=== PATIENT | female | born 1975 | race Two or more races ===

== ENCOUNTER 2016-10-09 11:02 | Emergency (ER) | payer OTHER ==
[2016-10-09 11:15] VITALS: BP 143/91; PULSE 86; TEMP 98.1; BMI 27.4
--- NOTE | 2016-10-09 12:05 | PDOC ---
History of Present Illness - General Chief Complaint: Vaginal Bleeding Stated Complaint: VAGINAL BLEEDING, 12 WKS Time Seen by Provider: 10/09/16 11:29 History Source: Patient - History of Present Illness Timing/Duration: reports: constant Quality: reports: severe Past History - Past Medical History Allergies/Adverse Reactions: Allergies Allergy/AdvReac Type Severity Reaction Status Date / Time No Known Allergies Allergy Verified 10/09/16 11:12 Home Medications: Ambulatory Orders NK [No Known Home Medication] 10/09/16 Other medical history: denies - Immunization History Immunization Up to Date: Yes - Psycho/Social/Smoking Cessation Hx Suicidal Ideation: No Smoking History: Never smoked Hx Alcohol Use: No Drug/Substance Use Hx: No Review of Systems - Review of Systems Constitutional: No: Fever Respiratory: No: Shortness of Breath Cardiac (ROS): No: Chest Pain ABD/GI: No: Nausea, Vomiting, Abdominal cramping : No: Dysuria *Physical Exam - Vital Signs Last Vital Signs Temp Pulse Resp BP Pulse Ox 98.1 F 86 18 143/91 98 10/09/16 11:12 10/09/16 11:12 10/09/16 11:12 10/09/16 11:12 10/09/16 11:12 - Physical Exam General Appearance: Yes: Appropriately Dressed. No: Apparent Distress HEENT: positive: Normal Voice Neck: positive: Supple Respiratory/Chest: negative: Respiratory Distress Female Pelvic Exam: positive: normal external exam, cervical os closed, normal adnexa, vaginal bleeding (minimal, possible tiny clots). negative: CMT Gastrointestinal/Abdominal: positive: Soft. negative: Tender ED Treatment Course - LABORATORY CBC & Chemistry Diagram: 10/09/16 12:05 - RADIOLOGY Radiology Studies Ordered: Category Date Time Status TRANSVAGINAL US PREG [US] Stat Ultrasound 10/09/16 11:39 Ordered Medical Decision Making - Medical Decision Making 10/09/16 12:04 40 yo F, , ~12 weeks by dates w/ scheduled for next Thursday, here with vaginal bleeding since last night. Denies any blood clots, abdominal cramping, dysuria, nausea or vomiting. See exam 1st trimester bleed Stable w/ benign abd w/ minimal vag bleed and closed os R/o ectopic vs threatened AB vs vag bleed in nl preg -beta -UA -T&S -US 10/09/16 12:10 10/09/16 12:11 10/09/16 13:56 IUP @ ~7 weeks w/ no FHR c/w demise. Beta 4356. A+ on T&S. No s/o infxn on ua. Pt informed of results and will f/u with her OB *DC/Admit/Observation/Transfer Diagnosis at time of Disposition: Threatened - Discharge Dispostion Disposition: HOME Condition at time of disposition: Good - Referrals Referrals: Cherrie Van [Primary Care Provider] - - Patient Instructions Printed Discharge Instructions: Threatened Additional Instructions: Najera US mostr un embarazo intrauterino en aproximadamente 7 semanas sin actividad cardaca , consistente con posible fallecimiento . Najera hCG beta fue 4356. Najera tipo de дмитрий es A +. Por favor, siga con najera OB norma ya programado. Si najera sangrado aumenta significativamente y usted est empapando a travs de 1 almohadilla por hora por ms de 3 horas, por favor regrese a ED Print Language: TURKMEN
[2016-10-09 12:13] LABS: BASOPHIL 0.7 % (0-2.0); EOSINOPHIL 1.6 % (0-4.5); MCH 30.9 pg (25.7-33.7); MCHC 34.1 g/dl (32.0-36.0); MEAN CELL VOLUME 90.5 fl (80-96); MEAN PLT VOLUME 8.4 fl (7.5-11.1); PLATELET COUNT 338 K/MM3 (134-434); RDW 13.8 % (11.6-15.6); WHITE BLOOD COUNT 11.2 K/mm3 (4.0-10.0)
[2016-10-09 12:35] LABS: URINE APPEARANCE SLCLOUDY; URINE BILIRUBIN NEGATIVE (NEGATIVE); URINE BLOOD 2+ (NEGATIVE); URINE COLOR LTYELLOW; URINE GLUCOSE (UA) NEGATIVE (NEGATIVE); URINE KETONE NEGATIVE (NEGATIVE); URINE LEUK ESTERASE NEGATIVE (NEGATIVE); URINE NITRITE NEGATIVE (NEGATIVE); URINE PROTEIN NEGATIVE (NEGATIVE); URINE UROBILINOGEN NEGATIVE mg/dL (0.2-1.0)
[2016-10-09 12:42] LABS: URINE BACTERIA RARE /hpf (NONE SEEN); URINE MUCUS RARE; URINE RBC 2 /hpf (0-3); URINE WBC 3 /hpf (3-5)
--- NOTE | 2016-10-09 20:57 | PDOC ---
*Physical Exam - Vital Signs Last Vital Signs Temp Pulse Resp BP Pulse Ox 98.1 F 86 18 143/91 98 10/09/16 11:12 10/09/16 11:12 10/09/16 11:12 10/09/16 11:12 10/09/16 11:12 ED Treatment Course - LABORATORY CBC & Chemistry Diagram: 10/09/16 12:05 - ADDITIONAL ORDERS Additional order review: Laboratory Results 10/09/16 10/09/16 10/09/16 12:24 12:06 12:05 Beta HCG, Quant 4356.9 Urine Color Ltyellow Urine Appearance Slcloudy Urine pH 5.0 Ur Specific Hinkle 1.010 Urine Protein Negative Urine Glucose (UA) Negative Urine Ketones Negative Urine Blood 2+ H Urine Nitrite Negative Urine Bilirubin Negative Urine Urobilinogen Negative Ur Leukocyte Esterase Negative Urine RBC 2 Urine WBC 3 Ur Epithelial Cells Rare Urine Bacteria Rare Urine Mucus Rare Urine HCG, Qual Positive Blood Type A POSITIVE Antibody Screen Negative 10/09/16 12:05 RBC 4.25 MCV 90.5 MCHC 34.1 RDW 13.8 MPV 8.4 Neutrophils % 75.0 Lymphocytes % 16.9 Monocytes % 5.8 Eosinophils % 1.6 Basophils % 0.7 - RADIOLOGY Radiology Studies Ordered: Category Date Time Status PELVIC / BLADDER US [US] Routine Ultrasound 10/09/16 Completed Medical Decision Making - Medical Decision Making 10/09/16 20:54 Patient seen and examined with PAPO Melo. Summary as follows: 40-year-old F 12 weeks presents with likely threatened . Patient with no current vaginal bleeding. Os was closed. Ultrasound with likely demise. Results discussed with patient who will follow up with her OB within 2-3 days. I instructed patient that if her vaginal bleeding exceeds soaking through 1 pad per hour for 3 or more hours that she should return to the ED or present to her OB immediately. *DC/Admit/Observation/Transfer Diagnosis at time of Disposition: Threatened - Discharge Dispostion Disposition: HOME Condition at time of disposition: Good - Referrals Referrals: Cherrie Van [Primary Care Provider] - - Patient Instructions Printed Discharge Instructions: Threatened Additional Instructions: Najera US mostr un embarazo intrauterino en aproximadamente 7 semanas sin actividad cardaca , consistente con posible fallecimiento . Najera hCG beta fue 4356. Najera tipo de дмитрий es A +. Por favor, siga con najera OB norma ya programado. Si najera sangrado aumenta significativamente y usted est empapando a travs de 1 almohadilla por hora por ms de 3 horas, por favor regrese a ED Print Language: SETSWANA - Post Discharge Activity
== END 2016-10-09 16:10 | disposition home or self-care (01) ==
LOC: JER 11:02
DX: O26.891 Other specified pregnancy related conditions, first trimester (principal); Z3A.12 12 weeks gestation of pregnancy; O20.0 Threatened abortion
CPT/HCPCS: 36415; 76817-TC; 76856-TC; 81003; 81015; 84702; 84703; 85025; 86850; 86900; 86901; 99282-25

== ENCOUNTER 2017-02-02 09:36 | Emergency (ER) | payer OTHER ==
[2017-02-02 09:43] VITALS: TEMP 98.8; BMI 27.4
--- NOTE | 2017-02-02 09:57 | PDOC ---
History of Present Illness - General Chief Complaint: Vaginal Bleeding Stated Complaint: VAGINAL BLEEDING (12 WKS ) Time Seen by Provider: 02/02/17 09:47 History Source: Patient - History of Present Illness Initial Comments: 02/02/17 10:13 Patient is a 41 y.o. (with 1 spontaneous @ 8 weeks) @ self- reported 12 weeks gestation who presents to the ED c/o 1 day h/o vaginal discharge. Patient states when she urinated yesterday evening she noticed a brownish discharge. Patient denies any vaginal bleeding or abdominal cramping and states she was scheduled to receive a TVUS today @ [facility] however she was concerned she was having a miscarriage and presented to the ED instead. Patient denies any chest pain, shortness of breath, fevers, chills, nausea, vomiting or diarrhea/constipation. PMH: None Surgical: none Social: denies cigarettes, denies alcohol, denies recreational drugs PMD: 2 [facility], cannot recall name Past History - Past Medical History Allergies/Adverse Reactions: Allergies Allergy/AdvReac Type Severity Reaction Status Date / Time No Known Allergies Allergy Verified 02/02/17 09:40 Home Medications: Ambulatory Orders Amox-Tr/K Cl [Augmentin - 875Mg Tablet] 1 tab PO BID #10 tablet 12/29/16 COPD: No Other medical history: DENIES. - Immunization History Immunization Up to Date: Yes - Suicide/Smoking/Psychosocial Hx Smoking History: Never smoked Hx Alcohol Use: No Drug/Substance Use Hx: No Review of Systems - Review of Systems Constitutional: No: Chills, Fever Respiratory: No: Shortness of Breath Cardiac (ROS): No: Chest Pain ABD/GI: No: Blood Streaked Bowels, Constipated, Diarrhea, Nausea, Vomiting : No: Burning, Dysuria Psychiatric: Yes: Anxiety. No: Depression *Physical Exam - Vital Signs Last Vital Signs Temp Pulse Resp BP Pulse Ox 98.8 F 74 20 148/88 100 02/02/17 09:40 02/02/17 09:40 02/02/17 09:40 02/02/17 09:40 02/02/17 09:40 - Physical Exam General Appearance: Yes: Nourished, Appropriately Dressed Neck: positive: Trachea midline, Supple Respiratory/Chest: positive: Lungs Clear Cardiovascular: positive: S1, S2 Female Pelvic Exam: positive: normal external exam, cervical os closed, discharge (pea sized brown colored discharge in vaginal vault). negative: CMT, adnexal tenderness, vaginal bleeding Gastrointestinal/Abdominal: positive: Normal Bowel Sounds, Soft. negative: Rebound, Tenderness, Hernia, Mass Musculoskeletal: negative: CVA Tenderness (R), CVA Tenderness (L) Extremity: positive: Normal Capillary Refill, Normal Inspection Integumentary: positive: Normal Color, Dry, Warm Neurologic: positive: Fully Oriented, Alert ED Treatment Course - LABORATORY CBC & Chemistry Diagram: 02/02/17 10:00 02/02/17 10:00 Medical Decision Making - Medical Decision Making 02/02/17 18:09 Patient is a 41 y.o. female at a self-reported 12 weeks gestation who presents to our ED today c/o brown colored vaginal discharge. Initial DDx is for threated vs. spontaneous . PLAN: 1. Beta-HCG 2. UA 3. Pelvic Exam, TVUS 02/02/17 18:20 Beta-HCG 7,322 --> c/w 4-5 week , however patient reports LMP of with a estimated 12 week gestation. Pelvic exam shows closed cervical OS with brownish discharge, no active bleed. TVUS shows no IUP/FHR. Patient counseled on return precautions (vaginal bleeding, severe abdominal cramping, fevers/chills) and discharged with instruction to f/u with christian counselor in the next 48 hours. *DC/Admit/Observation/Transfer Diagnosis at time of Disposition: Miscarriage - Discharge Dispostion Disposition: HOME Condition at time of disposition: Good Admit: No - Referrals Referrals: Priscilla Chaudhari MD [Primary Care Provider] - - Patient Instructions Printed Discharge Instructions: Dealing With Miscarriage, DI for Miscarriage Additional Instructions: Please return to the Emergency Department should you experience severe abdominal cramping, vaginal bleeding or any worsening or concerning symptoms. Please follow up with your christian counselor in the next 48 hours. - Post Discharge Activity
[2017-02-02 10:32] LABS: URINE APPEARANCE CLEAR; URINE BILIRUBIN NEGATIVE (NEGATIVE); URINE BLOOD NEGATIVE (NEGATIVE); URINE COLOR LT. YELLOW; URINE GLUCOSE (UA) NEGATIVE (NEGATIVE); URINE KETONE NEGATIVE (NEGATIVE); URINE NITRITE NEGATIVE (NEGATIVE); URINE PROTEIN NEGATIVE (NEGATIVE); URINE UROBILINOGEN 0.2 mg/dL (0.2-1.0)
[2017-02-02 10:41] LABS: BASOPHIL 1.1 % (0-2.0); EOSINOPHIL 2.4 % (0-4.5); MCH 31.6 pg (25.7-33.7); MCHC 34.1 g/dl (32.0-36.0); MEAN CELL VOLUME 92.5 fl (80-96); MEAN PLT VOLUME 8.3 fl (7.5-11.1); NEUTROPHILS 69.2 % (42.8-82.8); PLATELET COUNT 322 K/MM3 (134-434); RDW 13.2 % (11.6-15.6); WHITE BLOOD COUNT 9.9 K/mm3 (4.0-10.0)
[2017-02-02 11:11] LABS: ALBUMIN 3.5 g/dl (3.4-5.0); ANION GAP 5 (8-16); CALCIUM 8.9 mg/dL (8.5-10.1); CO2 28 mmol/L (21-32); GLUCOSE,RANDOM 99 mg/dL (74-106); SGPT/ALT 29 U/L (12-78)
[2017-02-02 11:29] LABS: ALK PHOS 61 U/L (45-117); BILIRUBIN,TOTAL 0.3 mg/dL (0.2-1.0); CREATININE 0.5 mg/dL (0.55-1.02); SGOT/AST 17 U/L (15-37); TOT PROT 7.2 g/dl (6.4-8.2)
--- NOTE | 2017-02-02 12:14 | PDOC ---
Attending Attestation - Resident Resident Name: Krystina Vlades - ED Attending Attestation I have performed the following: I have examined & evaluated the patient, The case was reviewed & discussed with the resident, I agree w/resident's findings & plan, Exceptions are as noted - HPI HPI: 02/02/17 12:12 41y/o F with h/o 1st trimester miscarriage this year, LMP about 12 weeks with dark vaginal discharge without cramping. - Physicial Exam PE: 02/02/17 12:12 VSS exam as noted, os closed - Medical Decision Making 02/02/17 12:13 41y/o F at 12 weeks gestation with vaginal discharge/bleeding. ? threatened ab, confirmed IUP during . t+s, hcg tvus dispo accordingly
[2017-02-02 14:26] VITALS: BP 138/75; PULSE 66
[2017-02-02 18:23] LABS: URINE LEUK ESTERASE Negative (NEGATIVE)
== END 2017-02-02 14:27 | disposition home or self-care (01) ==
LOC: JER 09:36
DX: O26.891 Other specified pregnancy related conditions, first trimester (principal); O02.1 Missed abortion; O08.89 Other complications following an ectopic and molar pregnancy; Z3A.12 12 weeks gestation of pregnancy
CPT/HCPCS: 36415; 76817-TC; 80053; 81003; 84702; 84703; 85025; 86850; 86900; 86901; 87086; 87186; 99284-25

== ENCOUNTER 2017-07-08 14:58 | Emergency (ER) | payer OTHER ==
[2017-07-08 15:40] VITALS: BP 128/70; PULSE 82; TEMP 98.5; BMI 33.3
--- NOTE | 2017-07-08 15:42 | PDOC ---
Rapid Medical Evaluation Time Seen by Provider: 07/08/17 15:35 Medical Evaluation: Allergies Allergy/AdvReac Type Severity Reaction Status Date / Time No Known Allergies Allergy Verified 07/08/17 15:35 07/08/17 15:36 I have performed a brief in-person evaluation of this patient. The patient presents with a chief complaint of: hit self in nose w/ box today, has injury to nose Pertinent physical exam findings:cutaneous lac to bridge of nose, no epistaxis I have ordered the following:nothing The patient will proceed to the ED for further evaluation. Discharge Disposition - Diagnosis Nasal laceration Qualifiers: Encounter type: initial encounter Qualified Code(s): S01.21XA - Laceration without foreign body of nose, initial encounter - Referrals - Patient Instructions - Post Discharge Activity
--- NOTE | 2017-07-08 16:15 | PDOC ---
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 States incurred a small abrasion to the bridge of her nose and has some tenderness but had no bleeding from the inner aspect. No LOC, no eye or mouth/dental injury Occurred: reports: just prior to arrival, this afternoon Severity: reports: mild Pain Location: reports: face Method of Injury: Yes: direct blow Loss of Consciousness: no loss of consciousness Associated Symptoms (Fall): denies symptoms Past History - Travel Traveled outside of the country in the last 30 days: No Close contact w/someone who was outside of country & ill: No - Past Medical History Allergies/Adverse Reactions: Allergies Allergy/AdvReac Type Severity Reaction Status Date / Time No Known Allergies Allergy Verified 07/08/17 15:35 Home Medications: Ambulatory Orders NK [No Known Home Medication] 07/08/17 COPD: No Other medical history: DENIES. - Reproductive History (#): 3 Para: 1 Spontaneous : 1 - Immunization History Immunization Up to Date: Yes - Suicide/Smoking/Psychosocial Hx Smoking History: Never smoked Hx Alcohol Use: No Drug/Substance Use Hx: No Review of Systems - Review of Systems Able to Perform ROS?: Yes Is the patient limited Kosovan proficient: Yes Constitutional: Yes: Symptoms Reported, See HPI HEENTM: Yes: Symptoms Reported Musculoskeletal: No: Symptoms Reported Integumentary: Yes: Symptoms Reported, See HPI Neurological: Yes: Symptoms reported All Other Systems: Reviewed and Negative *Physical Exam - Vital Signs Last Vital Signs Temp Pulse Resp BP Pulse Ox 98.5 F 82 19 128/70 98 07/08/17 15:35 07/08/17 15:35 07/08/17 15:35 07/08/17 15:35 07/08/17 15:35 - Physical Exam General Appearance: Yes: Nourished, Appropriately Dressed, Apparent Distress HEENT: positive: WENDY, Normal ENT Inspection, TMs Normal, Pharynx Normal, Rhinorrhea, Other (swelling and tenderness to bridge of nose, no septal hematoma ) Neck: positive: Supple. 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 No evidence of fracture and wound not requiring suture repair. *DC/Admit/Observation/Transfer Diagnosis at time of Disposition: Abrasion of face Qualifiers: Encounter type: initial encounter Qualified Code(s): S00.81XA - Abrasion of other part of head, initial encounter Contusion, nose Qualifiers: Encounter type: initial encounter Qualified Code(s): S00.33XA - Contusion of nose, initial encounter - Discharge Dispostion Disposition: HOME Condition at time of disposition: Stable Decision to Admit order: No - Referrals - Patient Instructions Printed Discharge Instructions: DI for Closed Head Injury, DI for Abrasion Additional Instructions: Rest, avoid strenuous activity or exercise for the next 24-48 hours May use ice on contusions as needed. May use Tylenol or Motrin for pain relief Reapply bacitracin ointment to abrasion on nose 2-3 times a day until healed, may use ice packs to the contusion Watch and seek evaluation for changes in behavior including crankiness, inconsolability, quietness/ sleepiness that is inappropriate, tiredness that is inappropriate, watch for worsening and changes of behavior. Seek immediate evaluation/return to emergency department for vomiting, mental status changes, pain that's out of proportion , bloody drainage from ears or nose. Followup with private physician as needed in one to 2 days for reevaluation - Post Discharge Activity Forms/Work/School Notes: Back to Work
[2017-07-08] MEDS ORDERED: ACETAMINOPHEN 325 MG TABLET (FP) ONE (16:31)
[2017-07-08] MEDS ORDERED: BACITRACIN 15 GM TUBE TOPICAL OINTMENT ONE (16:31)
== END 2017-07-08 16:59 | disposition home or self-care (01) ==
LOC: JERFT 14:58
PROC: 3E0234Z Introduction of Serum, Toxoid and Vaccine into Muscle, Percutaneous Approach (ICD-10-PCS; principal; 2017-07-08)
DX: S00.33XA Contusion of nose, initial encounter (principal); S00.31XA Abrasion of nose, initial encounter; W22.8XXA Striking against or struck by other objects, initial encounter; Y93.89 Activity, other specified; Y92.511 Restaurant or cafe as the place of occurrence of the external cause; Y99.0 Civilian activity done for income or pay
CPT/HCPCS: 99281-25

== ENCOUNTER 2017-12-14 11:53 | Emergency (ER) | payer OTHER ==
[2017-12-14 12:04] VITALS: BP 131/63; PULSE 72; TEMP 98.4; BMI 32.3
--- NOTE | 2017-12-14 12:35 | PDOC ---
Suture Removal/Wound Check HPI - History of Present Illness Chief Complaint: Suture/Staple Removal(Here) Stated Complaint: SUTURE REMOVAL Time Seen by Provider: 12/14/17 12:14 History Source: Yes: Patient Exam Limitations: Yes: No Limitations Treated at: [facility] ED Date of Last ED visit: 12/05/17 - Previous ED Treatment Type of procedure performed on last visit: Yes: Laceration Repair Tetanus Immunization: Yes: Up to Date Antibiotics Prescribed: No - Onset of Previous Treatment Date of Occurence: 12/05/17 Comment:: 12/14/17 12:36 42y F presenting with stuture removal had a knife wound sustained 10 days ago, had 3 stitchs placed and is now here for sturue removal no fever/chills, redness, discharge on exam: base of left thumb is well healed, non erythemaduos, not warm to the touch, [address] sutrues reomved without any complicaitions will dc with pmd fu return precautions were discussed I discussed the physical exam findings, ancillary test results and final diagnoses with the patient. I answered all of the patient's questions. The patient was satisfied with the care received and felt comfortable with the discharge plan and treatment plan. The patient will call their primary care physician within 24 hours to arrange follow-up and will return to the Emergency Department with any new, persistent or worsening symptoms. Past History - Past Medical History Allergies/Adverse Reactions: Allergies Allergy/AdvReac Type Severity Reaction Status Date / Time No Known Allergies Allergy Verified 07/08/17 15:35 Home Medications: Ambulatory Orders NK [No Known Home Medication] 07/08/17 COPD: No - Reproductive History (#): 3 Para: 1 Spontaneous : 1 - Immunization History Immunization Up to Date: Yes - Suicide/Smoking/Psychosocial Hx Smoking History: Never smoked Have you smoked in the past 12 months: No Information on smoking cessation initiated: No Hx Alcohol Use: No Drug/Substance Use Hx: No Substance Use Type: None *Physical Exam - Vital Signs Last Vital Signs Temp Pulse Resp BP Pulse Ox 98.4 F 72 20 131/63 100 12/14/17 11:54 12/14/17 11:54 12/14/17 11:54 12/14/17 11:54 12/14/17 11:54 Procedures - Consent Consent obtained: Verbal - Laceration/Wound Repair Left 1st digit Wound Length: to 2.5 cm Wound Explored: clean Wound's Depth, Shape: superficial Number of Sutures: 3 *DC/Admit/Observation/Transfer Diagnosis at time of Disposition: Visit for suture removal - Discharge Dispostion Disposition: HOME Condition at time of disposition: Improved Decision to Admit order: No - Referrals Referrals: [facility] [place] [Provider Group] - Patient Instructions Printed Discharge Instructions: DI for Suture Removal Print Language: SLOVAK - Post Discharge Activity
== END 2017-12-14 12:44 | disposition home or self-care (01) ==
LOC: FER 11:53
DX: Z48.02 Encounter for removal of sutures (principal)
CPT/HCPCS: 99281-25

== ENCOUNTER 2020-12-14 11:00 | Emergency (ER) | payer OTHER ==
[2020-12-14 11:08] VITALS: BP 140/87; PULSE 82; TEMP 98.5; BMI 28.6
[2020-12-14] MEDS ORDERED: IBUPROFEN 400 MG TABLET (FP) PO ONE ×2 (11:22→11:24)
== END 2020-12-14 12:41 | disposition home or self-care (01) ==
LOC: FER 11:00
DX: S86.911A Strain of unspecified muscle(s) and tendon(s) at lower leg level, right leg, initial encounter (principal); Y99.8 Other external cause status
CPT/HCPCS: 93971-TC; 99283-25

== ENCOUNTER 2021-08-22 04:11 | Day surgery (SDC) | payer OTHER ==
[2021-08-16 14:42] VITALS: BMI 32.5
[2021-08-22] MEDS ORDERED: MIDAZOLAM HCL 2 MG/2 ML SINGLE DOSE VIAL ONE (10:44)
[2021-08-22] MEDS ORDERED: SUCCINYLCHOLINE CHLORIDE 200 MG/10 ML SYRINGE ONE (10:44)
[2021-08-22] MEDS ORDERED: PROPOFOL 20 ML ONE ×2 (10:44)
[2021-08-22] MEDS ORDERED: ceFAZolin SODIUM 1 GM VIAL IVPB ONE (10:45)
[2021-08-22] MEDS ORDERED: ROCURONIUM BROMIDE 50 MG/5 ML SYRINGE ONE (10:51)
[2021-08-22] MEDS ORDERED: DEXAMETHASONE SOD PHOSPHATE 4 MG/1 ML VIAL ONE (10:58)
[2021-08-22] MEDS ORDERED: ceFAZolin SODIUM 1 GM VIAL ONE (10:58)
[2021-08-22] MEDS ORDERED: LIDOCAINE HCL 1%, 10 MG/ML (20ML VIAL) ONE (11:29)
[2021-08-22] MEDS ORDERED: LIDOCAINE HCL 1%, 10 MG/ML (20ML VIAL) NR ONE ×2 (11:33)
[2021-08-22] MEDS ORDERED: KETOROLAC TROMETHAMINE 30 MG/1 ML VIAL ONE (11:34)
[2021-08-22] MEDS ORDERED: NEOSTIGMINE METHYLSULFATE 0.5 MG/ML - 10 ML MDV ONE (11:50)
[2021-08-22] MEDS ORDERED: GLYCOPYRROLATE 0.2 MG/1 ML VIAL ONE (11:50)
[2021-08-22] MEDS ORDERED: ONDANSETRON 4 MG/2 ML VIAL IVPUSH PRN (12:04)
[2021-08-22] MEDS ORDERED: oxyCODONE HCL 5 MG TABLET PO PRN (12:04)
[2021-08-22] MEDS ORDERED: ACETAMINOPHEN 1000 MG/100 ML BAG IVPB ONE ×4 (12:04→12:24)
[2021-08-22] MEDS ORDERED: LACTATED RINGERS SOLUTION 1,000 ML IV SCH (12:15)
[2021-08-22] MEDS ORDERED: ACETAMINOPHEN INJECTION 100 ML IVPB ONE (12:20)
[2021-08-22 15:44] VITALS: BP 113/61; PULSE 80; TEMP 97.3
== END 2021-08-22 15:54 | disposition home or self-care (01) ==
LOC: JASU-SURG 04:11
PROVIDERS: ATTEND Obstetrics & Gynecology
PROC: 0JPV0HZ Removal of Contraceptive Device from Upper Extremity Subcutaneous Tissue and Fascia, Open Approach (ICD-10-PCS; 2021-08-22)
PROC: 0UT74ZZ Resection of Bilateral Fallopian Tubes, Percutaneous Endoscopic Approach (ICD-10-PCS; principal; 2021-08-22 12:00)
DX: Z30.2 Encounter for sterilization (principal)
CPT/HCPCS: 81025; 88300-TC; 88302-TC; 94760

== ENCOUNTER 2023-06-18 12:18 | Emergency (ER) | payer OTHER ==
[2023-06-18 12:38] VITALS: BP 128/69; PULSE 67; RESP 17; TEMP 98.6; BMI 34.1
== END 2023-06-18 13:42 | disposition home or self-care (01) ==
LOC: JERFT 12:18
DX: F32.A Depression, unspecified (principal); G47.00 Insomnia, unspecified; R63.0 Anorexia
CPT/HCPCS: 99283-25